=== PATIENT | male | born 1940 | race Caucasian/White ===

== ENCOUNTER → 2023-10-18 | Outpatient (CLI) | payer MEDICARE ==
[~2023-10-18] MED LIST: AMBIEN 5MG TABLE5 MG PO; ASPIRIN 81M81 MG/TA2 PO; CIPRO 500MG TA500 MG PO; FLOMAX 0.40.4 MG/CAP PO; Iohexol 300 - 100 ML VIAL IV ONE; LEVAQUIN 5500 MG/TA1 PO; PRINIVIL20 MG PO; THE MEDICINE S200 M2 PO; ZESTRIL30 MG PO; [UNRECOGNIZED DRUG - OTHER]; [UNRECOGNIZED DRUG - REMARK]
== END ==
LOC: COL.RAD 12:31
DX: Q64.4 Malformation of urachus (principal); N32.3 Diverticulum of bladder
CPT/HCPCS: Q9967